=== PATIENT | male | born 1990 | race Two or more races ===

== ENCOUNTER 2024-06-26 03:27 | Emergency (ER) | payer OTHER ==
[~2024-06-26] VITALS: Ht 195.6 cm; Wt 120.2 kg
[2024-06-26] MEDS: HYDROCODONE/APAP 5/325MG TABLET PO ONE (04:57)
[2024-06-26] MEDS ORDERED: HYDROCODONE/APAP 5/325MG TABLET ONE (04:57)
[2024-06-26 05:15] VITALS: BP 132/80; TEMP 98; O2SAT 100
== END 2024-06-26 05:16 | disposition home or self-care (01) ==
LOC: ER 03:34
DX: S43.492A Other sprain of left shoulder joint, initial encounter (principal); S20.212A Contusion of left front wall of thorax, initial encounter; M25.512 Pain in left shoulder; J45.909 Unspecified asthma, uncomplicated; V43.52XA Car driver injured in collision with other type car in traffic accident, initial encounter; Y93.89 Activity, other specified; Y92.488 Other paved roadways as the place of occurrence of the external cause; Y99.8 Other external cause status
CPT/HCPCS: 71100-TC; 73030-TC